=== PATIENT | male | born 1965 | race Caucasian/White ===

== ENCOUNTER 2016-07-23 06:17 | Emergency (ER) | payer SELFPAY | END 2016-07-23 09:20 | disposition home or self-care (01) | LOC: ER 06:17 | PROC: 0RSJXZZ Reposition Right Shoulder Joint, External Approach (ICD-10-PCS; principal; 2016-07-23) | DX: S43.014A Anterior dislocation of right humerus, initial encounter (principal); J44.9 Chronic obstructive pulmonary disease, unspecified; W18.30XA Fall on same level, unspecified, initial encounter | CPT/HCPCS: 73030-RT; 96374; 96375; 99284; J1170; J2405 ==